=== PATIENT | female | born 1945 | race Caucasian/White ===

== ENCOUNTER 2018-06-09 11:10 | Emergency (ER) | payer MEDICARE ==
--- NOTE | 2018-06-09 12:23 | ERPHSYRPT ---
- History of Present Illness Time Seen by Provider: 06/09/18 12:13 Source: patient Exam Limitations: no limitations Patient Subjective Stated Complaint: pt reports seeing her [employer] today for a check up and her BP was in the 200/100 range. pt denies pain, pt reports she is compliant with her BP medications. Triage Nursing Assessment: pt is aox3, pupils perrl, resps easy and non labored , radial pulses strong and equal, skin pink warm dry. pt ambulated to tx area with no difficulty. pt appears in no distress. Physician History: The patient is a 73-year-old female with her complaining of high blood pressure today while seen by nurse practitioner. One month ago a nurse practitioner found a heart murmur. The patient had an echocardiogram. She has not heard results from the echocardiogram. The patient's losartan had been increased from 50 to 100 mg daily because of her elevated blood pressure. Today her blood pressure was 200 systolic at the nurse practitioners office. The patient denies headache, chest pain, nausea, vomiting, or flushing. She denies any pain at all. She states she feels fine. Timing/Duration: today, gradual onset, worse Severity: moderate Modifying Factors: Improves With: nothing Associated Symptoms: denies symptoms Allergies/Adverse Reactions: No Known Drug Allergies Allergy (Unverified 06/09/18 11:31) Home Medications: Aspirin EC 81 mg [Ecotrin 81 mg] 81 mg PO DAILY 06/09/18 [History] Ezetimibe 10 mg PO DAILY 06/09/18 [History] Inositol 500 mg PO DAILY 06/09/18 [History] Levothyroxine Sodium 112 Mcg [Synthroid 112 Mcg] 112 mcg PO DAILY 06/09/18 [History] Losartan Potassium 100 mg PO DAILY 06/09/18 [History] Meloxicam 15 mg PO DAILY 06/09/18 [History] hydroCHLOROthiazide [Hydrochlorothiazide] 12.5 mg PO DAILY 06/09/18 [History] Hx Tetanus, Diphtheria Vaccination/Date Given: Yes Hx Influenza Vaccination/Date Given: Yes Hx Pneumococcal Vaccination/Date Given: No Immunizations Up to Date: Yes - Review of Systems Constitutional: No Fever, No Chills Eyes: No Symptoms Ears, Nose, & Throat: No Symptoms Respiratory: No Cough, No Dyspnea Cardiac: No Chest Pain, No Edema, No Syncope Abdominal/Gastrointestinal: No Abdominal Pain, No Nausea, No Vomiting, No Diarrhea Genitourinary Symptoms: No Dysuria Musculoskeletal: No Back Pain, No Neck Pain Skin: No Rash Neurological: No Dizziness, No Focal Weakness, No Sensory Changes Psychological: No Symptoms Endocrine: No Symptoms Hematologic/Lymphatic: No Symptoms Immunological/Allergic: No Symptoms All Other Systems: Reviewed and Negative - Past Medical History Pertinent Past Medical History: Yes Cardiac History: High Cholesterol, Hypertension, Other Endocrine Medical History: Hypothyroidism Psycho-Social History: Depression Other Medical History: heart murmur - Past Surgical History Past Surgical History: Yes Musculoskeletal: Joint Replacement, Orthopedic Surgery Female Surgical History: Tubal Ligation Other Surgical History: r hip 2016. bilat foot fractures. trigger thumb - Social History Smoking Status: Former smoker Drug Use: none Patient Lives Alone: No - Female History Hx Now: No - Nursing Vital Signs Nursing Vital Signs: Initial Vital Signs Pulse Rate 100 H 06/09/18 11:13 Respiratory Rate 20 06/09/18 11:13 Blood Pressure 203/133 06/09/18 11:13 O2 Sat by Pulse Oximetry 96 06/09/18 11:13 Pain Scale Pain Intensity 0 - Physical Exam General Appearance: no apparent distress, alert Eye Exam: PERRL/EOMI, eyes nml inspection Ears, Nose, Throat Exam: normal ENT inspection, TMs normal, pharynx normal, moist mucous membranes Neck Exam: normal inspection, non-tender, supple, full range of motion Respiratory Exam: normal breath sounds, lungs clear, No respiratory distress Cardiovascular Exam: regular rate/rhythm, murmur Gastrointestinal/Abdomen Exam: soft, normal bowel sounds, No tenderness, No mass Pelvic Exam: not done Rectal Exam: not done Back Exam: normal inspection, normal range of motion, No CVA tenderness, No vertebral tenderness Extremity Exam: normal inspection, normal range of motion, pelvis stable Neurologic Exam: alert, oriented x 3, cooperative, normal mood/affect, nml cerebellar function, nml station & gait, sensation nml, No motor deficits Skin Exam: normal color, warm, dry, No rash Lymphatic Exam: No adenopathy SpO2 Interpretation: normal SpO2: 96 Oxygen Delivery: Room Air - Course EKG Interpreted by Me: RATE, Sinus Rhythm, NORMAL AXIS, NORMAL INTERVALS, NORMAL QRS, NORMAL ST-T - Radiology Exams Chest X-ray Interpretation: Reviewed by me, Teleradiologist Report (per Dr Roman.), Negative Ordered Tests: Active Orders 24 hr Category Date Time Status Clean Catch Urine Specimen STAT Care 06/09/18 12:23 Active EKG-ER Only STAT Care 06/09/18 12:23 Active CHEST 2 VIEWS (PA AND LAT) Stat Exams 06/09/18 12:23 Completed CBC W DIFF Stat Lab 06/09/18 12:59 Completed CMP Stat Lab 06/09/18 12:59 Completed Lactic Acid Stat Lab 06/09/18 12:45 Completed TROPONIN Q3H Lab 06/09/18 12:30 Completed TROPONIN Q3H Lab 06/09/18 15:30 Ordered TROPONIN Q3H Lab 06/09/18 18:30 Ordered TROPONIN Q3H Lab 06/09/18 21:30 Ordered TROPONIN Q3H Lab 06/10/18 00:30 Ordered TSH [TSH, 3RD Generation] Stat Lab 06/09/18 12:59 Completed UA W/RFX UR CULTURE Stat Lab 06/09/18 12:32 Completed Lab/Rad Data: Laboratory Result Diagrams 06/09/18 12:59 06/09/18 12:59 Laboratory Results 06/09/18 06/09/18 06/09/18 Range/Units 12:59 12:59 12:59 WBC 7.1 (4.0-10.5) K/mm3 RBC 4.50 (4.1-5.4) M/mm3 Hgb 14.6 (12.0-16.0) gm/dl Hct 44.5 (35-47) % MCV 98.9 (78-100) fl MCH 32.4 H (26-32) pg MCHC 32.8 (32-36) g/dl RDW 13.3 (11.5-14.0) % Plt Count 270 (150-450) K/mm3 MPV 9.6 H (6-9.5) fl Gran % 76.8 H (36.0-66.0) % Eos # (Auto) 0.04 (0-0.5) Absolute Lymphs (auto) 0.92 L (1.0-4.6) Absolute Monos (auto) 0.66 (0.0-1.3) Lymphocytes % 12.9 L (24.0-44.0) % Monocytes % 9.3 (0.0-12.0) % Eosinophils % 0.6 (0.00-5.0) % Basophils % 0.4 (0.0-0.4) % Absolute Granulocytes 5.48 (1.4-6.9) Basophils # 0.03 (0-0.4) Sodium 140 (137-145) mmol/L Potassium 4.5 (3.5-5.1) mmol/L Chloride 102 (98-107) mmol/L Carbon Dioxide 30 (22-30) mmol/L Anion Gap 12.8 (5-15) MEQ/L BUN 24 H (7-17) mg/dL Creatinine 0.69 (0.52-1.04) mg/dL Estimated GFR > 60.0 ML/MIN Glucose 82 (74-106) mg/dL Lactic Acid (0.4-2.0) Calcium 9.8 (8.4-10.2) mg/dL Total Bilirubin 0.40 (0.2-1.3) mg/dL AST 23 (14-36) U/L ALT 22 (0-35) U/L Alkaline Phosphatase 120 (38-126) U/L Troponin I (0.000-0.034) ng/mL Serum Total Protein 6.8 (6.3-8.2) g/dL Albumin 4.1 (3.5-5.0) g/dL TSH 3rd Generation 1.350 (0.47-4.68) mIU/L Urine Color (YELLOW) Urine Appearance (CLEAR) Urine pH (5-6) Ur Specific [place] (1.005-1.025) Urine Protein (Negative) Urine Ketones (NEGATIVE) Urine Blood (0-5) Timothy/ul Urine Nitrite (NEGATIVE) Urine Bilirubin (NEGATIVE) Urine Urobilinogen (0-1) mg/dL Ur Leukocyte Esterase (NEGATIVE) Urine WBC (Auto) (0-5) /HPF Urine RBC (Auto) (0-2) /HPF U Epithel Cells (Auto) (FEW) /HPF Urine Bacteria (Auto) (NEGATIVE) /HPF Urine Mucus (Auto) (NEGATIVE) /HPF Urine Culture Reflexed (NO) Urine Glucose (NEGATIVE) mg/dL 06/09/18 06/09/18 06/09/18 Range/Units 12:45 12:32 12:30 WBC (4.0-10.5) K/mm3 RBC (4.1-5.4) M/mm3 Hgb (12.0-16.0) gm/dl Hct (35-47) % MCV (78-100) fl MCH (26-32) pg MCHC (32-36) g/dl RDW (11.5-14.0) % Plt Count (150-450) K/mm3 MPV (6-9.5) fl Gran % (36.0-66.0) % Eos # (Auto) (0-0.5) Absolute Lymphs (auto) (1.0-4.6) Absolute Monos (auto) (0.0-1.3) Lymphocytes % (24.0-44.0) % Monocytes % (0.0-12.0) % Eosinophils % (0.00-5.0) % Basophils % (0.0-0.4) % Absolute Granulocytes (1.4-6.9) Basophils # (0-0.4) Sodium (137-145) mmol/L Potassium (3.5-5.1) mmol/L Chloride (98-107) mmol/L Carbon Dioxide (22-30) mmol/L Anion Gap (5-15) MEQ/L BUN (7-17) mg/dL Creatinine (0.52-1.04) mg/dL Estimated GFR ML/MIN Glucose (74-106) mg/dL Lactic Acid 1.2 (0.4-2.0) Calcium (8.4-10.2) mg/dL Total Bilirubin (0.2-1.3) mg/dL AST (14-36) U/L ALT (0-35) U/L Alkaline Phosphatase (38-126) U/L Troponin I < 0.012 (0.000-0.034) ng/mL Serum Total Protein (6.3-8.2) g/dL Albumin (3.5-5.0) g/dL TSH 3rd Generation (0.47-4.68) mIU/L Urine Color STRAW (YELLOW) Urine Appearance CLEAR (CLEAR) Urine pH 7.0 (5-6) Ur Specific [place] 1.006 (1.005-1.025) Urine Protein NEGATIVE (Negative) Urine Ketones NEGATIVE (NEGATIVE) Urine Blood NEGATIVE (0-5) Timothy/ul Urine Nitrite NEGATIVE (NEGATIVE) Urine Bilirubin NEGATIVE (NEGATIVE) Urine Urobilinogen NEGATIVE (0-1) mg/dL Ur Leukocyte Esterase TRACE (NEGATIVE) Urine WBC (Auto) 0-2 (0-5) /HPF Urine RBC (Auto) 0-2 (0-2) /HPF U Epithel Cells (Auto) RARE (FEW) /HPF Urine Bacteria (Auto) RARE (NEGATIVE) /HPF Urine Mucus (Auto) SLIGHT (NEGATIVE) /HPF Urine Culture Reflexed NO (NO) Urine Glucose NEGATIVE (NEGATIVE) mg/dL - Progress Progress: unchanged Counseled pt/family regarding: lab results, diagnosis, need for follow-up, rad results - Departure Time of Disposition: 14:13 Departure Disposition: Home Clinical Impression: HTN (hypertension) Condition: Stable Critical Care Time: No Referrals: DANI SONI NP [Primary Care Provider] - Additional Instructions: When you first arrived in the ER, your blood pressure was high. After being seated for several minutes, blood pressure has been normal. all laboratory testing and x-ray of your chest were normal. Urinalysis was normal. Keep taking your medicines as previously prescribed. When home, use automatic blood pressure machine and take your blood pressure 2 or 3 times a day. Record your blood pressure readings and bring them to your next appointment on Tuesday. If your blood pressure becomes very high again, feel free to return to the ER.
--- NOTE | 2018-06-09 12:52 | XRAY ---
Indication: High blood pressure. Short of breath. Comparison: None PA/lateral chest hyperinflated and clear. Heart and mediastinal structures within normal limits. Bony thorax intact with mild degenerative changes. Impression: Nonacute hyperinflated chest.
[2018-06-09 13:00] LABS: BASOPHIL % 0.4 % (0.0-0.4); Basophil (Absolute #) 0.03 (0-0.4); Eosinophil % 0.6 % (0.00-5.0); Eosinophil (Absolute #) 0.04 (0-0.5); Granulocyte Absolute (ANC) 5.48 (1.4-6.9); Granulocytes % 76.8 % (36.0-66.0); Hematocrit 44.5 % (35-47); Hemoglobin 14.6 gm/dl (12.0-16.0); Lymphocyte (Absolute #) 0.92 (1.0-4.6); Lymphocytes % 12.9 % (24.0-44.0); Mean Cell Volume 98.9 fl (78-100); Mean Corpuscular Hemoglobin 32.4 pg (26-32); Mean Corpuscular Hgb Concent. 32.8 g/dl (32-36); Mean Platelet Volume 9.6 fl (6-9.5); Monocyte (Absolute #) 0.66 (0.0-1.3); Monocytes % 9.3 % (0.0-12.0); Platelet Count 270 K/mm3 (150-450); Red Cell Distribution Width 13.3 % (11.5-14.0); White Blood Count 7.1 K/mm3 (4.0-10.5)
[2018-06-09 13:03] LABS: Appearance CLEAR (CLEAR); Bilirubin NEGATIVE (NEGATIVE); Blood NEGATIVE Ery/ul (0-5); Glucose NEGATIVE (NEGATIVE); Ketones NEGATIVE (NEGATIVE); Leukocyte Esterase TRACE (NEGATIVE); Nitrite NEGATIVE (NEGATIVE); Protein,Urine Dip NEGATIVE (Negative); Specific Gravity 1.006 (1.005-1.025); Urobilinogen NEGATIVE mg/dL (0-1)
[2018-06-09 13:24] LABS: ALBUMIN 4.1 g/dL (3.5-5.0); ALKALINE PHOSPHATASE 120 U/L (38-126); ANION GAP 12.8 MEQ/L (5-15); BLOOD UREA NITROGEN 24 mg/dL (7-17); CHLORIDE 102 mmol/L (98-107); Calcium 9.8 mg/dL (8.4-10.2); Carbon Dioxide 30 mmol/L (22-30); Creatinine 1 0.69 mg/dL (0.52-1.04); Glucose 82 mg/dL (74-106); Potassium 4.5 mmol/L (3.5-5.1); SGOT/AST 23 U/L (14-36); SGPT/ALT 22 U/L (0-35); SODIUM 140 mmol/L (137-145); Total Protein 6.8 g/dL (6.3-8.2)
[2018-06-09 14:17] VITALS: O2SAT 96
[2018-06-09 14:25] VITALS: BP 151/101; PULSE 76
== END 2018-06-09 14:24 | disposition home or self-care (01) ==
LOC: ED 11:10
DX: I10 Essential (primary) hypertension (principal); Z79.899 Other long term (current) drug therapy; E03.9 Hypothyroidism, unspecified
CPT/HCPCS: 36415; 71046; 80053; 81001; 83605; 84443; 84484; 85025; 93005; 99284

== ENCOUNTER 2018-12-02 15:50 | Emergency (ER) | payer MEDICARE ==
[2018-12-02] MEDS ORDERED: Sodium Chloride 0.9% 1000 ML 1,000 ML IV STA (16:06)
[2018-12-02] MEDS ORDERED: Sodium Chloride 0.9% 1000 ML 1,000 ML ONE (16:19)
[2018-12-02 16:27] LABS: BASOPHIL % 0.2 % (0.0-0.4); Basophil (Absolute #) 0.02 (0-0.4); Eosinophil % 0.7 % (0.00-5.0); Eosinophil (Absolute #) 0.07 (0-0.5); Granulocyte Absolute (ANC) 8.54 (1.4-6.9); Granulocytes % 84.1 % (36.0-66.0); Hematocrit 39.4 % (35-47); Lymphocyte (Absolute #) 0.57 (1.0-4.6); Lymphocytes % 5.6 % (24.0-44.0); Mean Cell Volume 98.5 fl (78-100); Mean Corpuscular Hemoglobin 32.5 pg (26-32); Mean Platelet Volume 9.9 fl (6-9.5); Monocytes % 9.4 % (0.0-12.0); Platelet Count 248 K/mm3 (150-450); Red Cell Distribution Width 13.1 % (11.5-14.0); White Blood Count 10.2 K/mm3 (4.0-10.5)
[2018-12-02 16:34] LABS: Appearance TURBID (CLEAR); Bacteria FEW /HPF (NEGATIVE); Bilirubin NEGATIVE (NEGATIVE); Blood LARGE Ery/ul (0-5); Glucose NEGATIVE (NEGATIVE); Ketones TRACE (NEGATIVE); Leukocyte Esterase MODERATE (NEGATIVE); Nitrite NEGATIVE (NEGATIVE); Protein,Urine Dip 100 (Negative); Specific Gravity 1.015 (1.005-1.025); Urobilinogen NEGATIVE mg/dL (0-1); WBC >100 /HPF (0-5)
[2018-12-02 16:35] LABS: RBC >101 /HPF (0-2)
[2018-12-02 16:36] LABS: ALBUMIN 4.1 g/dL (3.5-5.0); ALKALINE PHOSPHATASE 101 U/L (38-126); BLOOD UREA NITROGEN 20 mg/dL (7-17); CHLORIDE 98 mmol/L (98-107); Calcium 9.2 mg/dL (8.4-10.2); Carbon Dioxide 28 mmol/L (22-30); Glucose 112 mg/dL (74-106); Potassium 3.6 mmol/L (3.5-5.1); SGOT/AST 30 U/L (14-36); SGPT/ALT 21 U/L (0-35); SODIUM 137 mmol/L (137-145); Total Protein 7.2 g/dL (6.3-8.2)
--- NOTE | 2018-12-02 16:51 | ERPHSYRPT ---
- History of Present Illness Time Seen by Provider: 12/02/18 16:49 Historian: patient Exam Limitations: no limitations Patient Subjective Stated Complaint: states has had right flank and right groin pain for four days. today had blood in urine and was having chills. hx of kidney stone. Triage Nursing Assessment: ambulated to room per self. skin w/d, color normal, resp easy. patient holding right flank area. abd soft, tender rlq. urine spec obtained and urine is dark red. Physician History: 73 years old female patient states has had right flank and right groin pain for four days. today had blood in urine and was having chills Timing/Duration: today Abdominal Pain Onset Location: RLQ, suprapubic, flank Pain Radiation: RLQ Severity of Pain-Max: moderate Severity of Pain-Current: mild Modifying Factors: Improves With: nothing Previous symptoms: same symptoms as today Allergies/Adverse Reactions: morphine Adverse Reaction (Verified 12/02/18 16:18) Home Medications: Aspirin EC 81 mg [Ecotrin 81 mg] 81 mg PO DAILY 06/09/18 [History] Ezetimibe 10 mg PO DAILY 06/09/18 [History] Levothyroxine Sodium 112 Mcg [Synthroid 112 Mcg] 112 mcg PO DAILY 06/09/18 [History] Meloxicam 15 mg PO DAILY 06/09/18 [History] Amlodipine Besylate 5 mg PO DAILY 12/02/18 [History] Losartan/Hydrochlorothiazide [Losartan-Hctz 100-25 mg Tab] 100 mg PO DAILY 12/02 [History] [place]-3S/Dha/Epa/Fish Oil [Fish Oil 1,200 mg Softgel] 1 each PO DAILY 12/02/18 [ History] Rosuvastatin Calcium 10 mg PO DAILY 12/02/18 [History] Vit A/Vit C/Vit E/Zinc/Copper [Preservision Areds Tablet] 2 each PO DAILY [History] Hx Tetanus, Diphtheria Vaccination/Date Given: Yes Hx Influenza Vaccination/Date Given: Yes Hx Pneumococcal Vaccination/Date Given: Yes - Review of Systems Constitutional: No Fever, No Chills Eyes: No Symptoms Ears, Nose, & Throat: No Symptoms Respiratory: No Cough, No Dyspnea Cardiac: No Chest Pain, No Edema, No Syncope Abdominal/Gastrointestinal: No Abdominal Pain, No Nausea, No Vomiting, No Diarrhea Genitourinary Symptoms: Dysuria, Frequency, Hematuria, Hesitancy Musculoskeletal: No Back Pain, No Neck Pain Skin: No Rash Neurological: No Dizziness, No Focal Weakness, No Sensory Changes Psychological: No Symptoms Endocrine: No Symptoms All Other Systems: Reviewed and Negative - Past Medical History Pertinent Past Medical History: Yes Cardiac History: High Cholesterol, Hypertension, Other Endocrine Medical History: Hypothyroidism Psycho-Social History: Depression Other Medical History: heart murmur - Past Surgical History Past Surgical History: Yes Musculoskeletal: Joint Replacement, Orthopedic Surgery Female Surgical History: Tubal Ligation Other Surgical History: r hip 2016. bilat foot fractures. trigger thumb - Social History Smoking Status: Former smoker Exposure to second hand smoke: Yes Drug Use: none Patient Lives Alone: No - Nursing Vital Signs Nursing Vital Signs: Initial Vital Signs Temperature 99.7 F 12/02/18 15:55 Pulse Rate 123 H 12/02/18 15:55 Respiratory Rate 16 12/02/18 15:55 Blood Pressure 178/90 12/02/18 15:55 O2 Sat by Pulse Oximetry 94 L 12/02/18 15:55 Pain Scale Pain Intensity 4 - Physical Exam General Appearance: no apparent distress, alert Eye Exam: PERRL/EOMI, eyes nml inspection Ears, Nose, Throat Exam: normal ENT inspection, pharynx normal, moist mucous membranes Neck Exam: normal inspection, non-tender, supple, full range of motion Respiratory Exam: normal breath sounds, lungs clear, No respiratory distress Cardiovascular Exam: regular rate/rhythm, normal heart sounds Gastrointestinal/Abdomen Exam: soft, No tenderness, No mass Back Exam: normal inspection, normal range of motion, No CVA tenderness, No vertebral tenderness Extremity Exam: normal inspection, normal range of motion, pelvis stable Neurologic Exam: alert, oriented x 3, cooperative, normal mood/affect, nml cerebellar function, sensation nml, No motor deficits Skin Exam: normal color, warm, dry SpO2: 94 - Course Nursing assessment & vital signs reviewed: Yes - CT Exams Abdomen/Pelvis CT Interpretation: Tele-radiologist Report (multiple renal stones) Ordered Tests: Active Orders 24 hr Category Date Time Status ABDOMEN AND PELVIS W/0 CONTRAS [CT] Stat Exams 12/02/18 16:07 Taken CBC W DIFF Stat Lab 12/02/18 16:15 Completed CMP Stat Lab 12/02/18 16:15 Completed CULTURE,URINE Stat Lab 12/02/18 16:15 Received Lactic Acid Stat Lab 12/02/18 16:26 Completed UA W/RFX UR CULTURE Stat Lab 12/02/18 16:15 Completed Medication Summary Discontinued Medications Generic Name Dose Route Start Last Admin Trade Name Esme PRN Reason Stop Dose Admin Sodium Chloride 1,000 mls @ 999 mls/hr 12/02/18 16:06 12/02/18 16:21 Sodium Chloride 0.9% 1000 Ml IV 12/02/18 17:06 999 mls/hr .Q1H1M STA Administration Sodium Chloride Confirm 12/02/18 16:19 Sodium Chloride 0.9% 1000 Ml Administered 12/02/18 16:20 Dose 1,000 mls @ ud .ROUTE .K-MED ONE Lab/Rad Data: Laboratory Result Diagrams 12/02/18 16:15 12/02/18 16:15 Laboratory Results 12/02/18 12/02/18 12/02/18 Range/Units 16:26 16:15 16:15 WBC (4.0-10.5) K/mm3 RBC (4.1-5.4) M/mm3 Hgb (12.0-16.0) gm/dl Hct (35-47) % MCV (78-100) fl MCH (26-32) pg MCHC (32-36) g/dl RDW (11.5-14.0) % Plt Count (150-450) K/mm3 MPV (6-9.5) fl Gran % (36.0-66.0) % Eos # (Auto) (0-0.5) Absolute Lymphs (auto) (1.0-4.6) Absolute Monos (auto) (0.0-1.3) Lymphocytes % (24.0-44.0) % Monocytes % (0.0-12.0) % Eosinophils % (0.00-5.0) % Basophils % (0.0-0.4) % Absolute Granulocytes (1.4-6.9) Basophils # (0-0.4) Sodium 137 (137-145) mmol/L Potassium 3.6 (3.5-5.1) mmol/L Chloride 98 (98-107) mmol/L Carbon Dioxide 28 (22-30) mmol/L Anion Gap 14.0 (5-15) MEQ/L BUN 20 H (7-17) mg/dL Creatinine 0.90 (0.52-1.04) mg/dL Estimated GFR > 60.0 ML/MIN Glucose 112 H (74-106) mg/dL Lactic Acid 1.0 (0.4-2.0) Calcium 9.2 (8.4-10.2) mg/dL Total Bilirubin 0.60 (0.2-1.3) mg/dL AST 30 (14-36) U/L ALT 21 (0-35) U/L Alkaline Phosphatase 101 (38-126) U/L Serum Total Protein 7.2 (6.3-8.2) g/dL Albumin 4.1 (3.5-5.0) g/dL Urine Color RED (YELLOW) Urine Appearance TURBID (CLEAR) Urine pH 7.0 (5-6) Ur Specific [place] 1.015 (1.005-1.025) Urine Protein 100 (Negative) Urine Ketones TRACE (NEGATIVE) Urine Blood LARGE (0-5) Timothy/ul Urine Nitrite NEGATIVE (NEGATIVE) Urine Bilirubin NEGATIVE (NEGATIVE) Urine Urobilinogen NEGATIVE (0-1) mg/dL Ur Leukocyte Esterase MODERATE (NEGATIVE) Urine WBC (Auto) >100 (0-5) /HPF Urine RBC (Auto) >101 (0-2) /HPF U Epithel Cells (Auto) NONE (FEW) /HPF Urine Bacteria (Auto) FEW (NEGATIVE) /HPF Urine Culture Reflexed YES (NO) Urine Glucose NEGATIVE (NEGATIVE) mg/dL Slides for Path Review 12/02/18 Range/Units 16:15 WBC 10.2 (4.0-10.5) K/mm3 RBC 4.00 L (4.1-5.4) M/mm3 Hgb 13.0 (12.0-16.0) gm/dl Hct 39.4 (35-47) % MCV 98.5 (78-100) fl MCH 32.5 H (26-32) pg MCHC 33.0 (32-36) g/dl RDW 13.1 (11.5-14.0) % Plt Count 248 (150-450) K/mm3 MPV 9.9 H (6-9.5) fl Gran % 84.1 H (36.0-66.0) % Eos # (Auto) 0.07 (0-0.5) Absolute Lymphs (auto) 0.57 L (1.0-4.6) Absolute Monos (auto) 0.95 (0.0-1.3) Lymphocytes % 5.6 L (24.0-44.0) % Monocytes % 9.4 (0.0-12.0) % Eosinophils % 0.7 (0.00-5.0) % Basophils % 0.2 (0.0-0.4) % Absolute Granulocytes 8.54 H (1.4-6.9) Basophils # 0.02 (0-0.4) Sodium (137-145) mmol/L Potassium (3.5-5.1) mmol/L Chloride (98-107) mmol/L Carbon Dioxide (22-30) mmol/L Anion Gap (5-15) MEQ/L BUN (7-17) mg/dL Creatinine (0.52-1.04) mg/dL Estimated GFR ML/MIN Glucose (74-106) mg/dL Lactic Acid (0.4-2.0) Calcium (8.4-10.2) mg/dL Total Bilirubin (0.2-1.3) mg/dL AST (14-36) U/L ALT (0-35) U/L Alkaline Phosphatase (38-126) U/L Serum Total Protein (6.3-8.2) g/dL Albumin (3.5-5.0) g/dL Urine Color (YELLOW) Urine Appearance (CLEAR) Urine pH (5-6) Ur Specific [place] (1.005-1.025) Urine Protein (Negative) Urine Ketones (NEGATIVE) Urine Blood (0-5) Timothy/ul Urine Nitrite (NEGATIVE) Urine Bilirubin (NEGATIVE) Urine Urobilinogen (0-1) mg/dL Ur Leukocyte Esterase (NEGATIVE) Urine WBC (Auto) (0-5) /HPF Urine RBC (Auto) (0-2) /HPF U Epithel Cells (Auto) (FEW) /HPF Urine Bacteria (Auto) (NEGATIVE) /HPF Urine Culture Reflexed (NO) Urine Glucose (NEGATIVE) mg/dL Slides for Path Review YES - Progress Progress: improved Counseled pt/family regarding: lab results, diagnosis, need for follow-up, rad results - Departure Departure Disposition: Home Clinical Impression: Renal stones HTN (hypertension) Qualifiers: Hypertension type: essential hypertension Qualified Code(s): I10 - Essential ( primary) hypertension Condition: Stable Critical Care Time: No Referrals: DANI SONI NP [Primary Care Provider] - SHYANN STARR DO [NON-STAFF PHY W/O PRIVILEGES] - Instructions: Kidney Stones (DC) Additional Instructions: Discharge/Care Plan GEMA OSEI was seen on 12/02/18 in the Emergency Room. The patient was counseled regarding Diagnosis,Lab results, Imaging studies, need for follow up and when to return to the Emergency Room. Prescriptions given: Discharge Note I have spoken with the patient and/or caregivers. I have explained the patient' s condition, diagnosis and treatment plan based on the information available to me at this time. I have answered the patient's and/or caregiver's questions and addressed any concerns. The patient and/or caregivers have as good understanding of the patient's diagnosis, condition and treatment plan as can be expected at this point. The vital signs have been stable. The patient's condition is stable and appropriate for discharge from the emergency department. The patient will pursue further outpatient evaluation with the primary care physician or other designated or consulting physician as outlined in the discharge instructions. The patient and/or caregivers are agreeable to this plan of care and follow-up instructions have been explained in detail. The patient and/or caregivers have received these instruction. The patient/and or caregivers are aware that any significant change in condition or worsening of symptoms should prompt an immediate return to this or the closest emergency department or call 911. Prescriptions: Ciprofloxacin [Cipro 500 MG] 500 mg PO BIDAC #20 tablet
[2018-12-02 17:32] LABS: Slide Review 1 YES
[2018-12-02] MEDS ORDERED: ROCEPHIN 1 Gm-D5w 50 ml Bag** 1 G/50 ML IVPB IV STA (17:42)
[2018-12-02] MEDS ORDERED: ROCEPHIN 1 Gm-D5w 50 ml Bag** 1 G/50 ML IVPB IV ONE ×2 (17:46→18:50)
[2018-12-02 17:54] VITALS: BP 154/80; PULSE 94; O2SAT 97
--- NOTE | 2018-12-02 22:37 | XRAY ---
Indication: Right abdomen/flank pain. Multiple contiguous axial images obtained through the abdomen and pelvis without contrast as ordered. Comparison: None Lung bases demonstrates 3-4 mm peripheral right middle lobe and 2-3 mm peripheral right lower lobe noncalcified indeterminate nodules. No infiltrate or effusion. Heart is not enlarged with tiny pericardial effusion. Moderate sized hiatal hernia with partial intrathoracic stomach. Noncontrasted stomach and bowel loops appear nonobstructed. Normal appendix. Scattered sigmoid diverticulosis. Images through the pelvis limited by beam artifact from right hip bipolar prosthesis. There is a 7.5 x 7 cm heterogeneous mid pelvic mass with a few calcifications, possible exophytic fundal fibroid. Teratoma/dermoid not completely excluded. No free fluid/air. Both kidneys are hydronephrotic with calculi, right greater than left. Right ureter is also slightly prominent to the level of the pelvic mass, possible partial distal obstruction. Remaining liver, gallbladder, pancreas, spleen, adrenal glands, kidneys, and bladder appear unremarkable for noncontrast exam. Mild aortoiliac calcifications without AAA. Osseous structures intact with mild/moderate degenerative changes throughout the thoracolumbar spine. Impression: 1. Heterogeneous pelvic mass as detailed. Rule out uterine fibroid versus teratoma/dermoid. Beam artifact from right hip prosthesis limits images through the pelvis. Pelvic sonogram may yield further information. 2. Bilateral renal calculi and bilateral hydronephrosis right greater than left. Right ureter is slightly prominent to level of the fundal mass suggesting partial obstructive uropathy. 3. Moderate-sized hiatal hernia and sigmoid diverticulosis. 4. Indeterminant right middle and right lower lobe noncalcified micronodules. Comparison studies would be of benefit if performed elsewhere. If not, recommend CT chest to establish baseline with follow-up per Fleischner guidelines. Comment: Preliminary interpretation was made by [facility]. No critical discrepancy. CTDI 22.02
== END 2018-12-02 18:32 | disposition home or self-care (01) ==
LOC: ED 15:50
DX: I10 Essential (primary) hypertension (principal); E78.00 Pure hypercholesterolemia, unspecified; F32.9 Major depressive disorder, single episode, unspecified; R01.1 Cardiac murmur, unspecified
CPT/HCPCS: 36000; 36415; 74176; 80053; 81001; 83605; 85025; 87077; 87086; 87186; 96360; 96365; 96374; 96375; 99284; J0696

== ENCOUNTER 2022-08-12 07:28 | Day surgery (SDC) | payer MEDICARE ==
--- NOTE | 2022-08-11 11:50 | HP ---
DATE OF SURGERY: 08/12/2022 HISTORY OF PRESENT ILLNESS: The patient is a 77-year-old female who presents with a clinical hernia with right lower quadrant bulge and painful. Walking down stairs bothers her. She had a total hysterectomy and tubal ligation in the past. She reports chronic kidney infections and kidney stone. She is apparently seeing urology for the kidney issue. She had a CT scan that did not really show anything on the scan. PAST MEDICAL HISTORY: Hypertension, gastroesophageal reflux disease, thyroid, anemia, arthritis, renal implant. PAST SURGICAL HISTORY: Hysterectomy. Tubal ligation. Foot surgery. Hip surgery. ALLERGIES: MORPHINE. MEDICATIONS: Tamsulosin, vitamin C, Diovan, carvedilol, aspirin, amlodipine, omeprazole, Tricor, valsartan, levothyroxine. FAMILY HISTORY: None reported. SOCIAL HISTORY: Former smoker, no alcohol. REVIEW OF SYSTEMS: CONSTITUTIONAL: Denies fever or chills. CHEST: Denies shortness of breath. CVS: Denies chest pain. ABDOMEN: Reports right lower quadrant pain. PHYSICAL EXAMINATION: GENERAL: No acute distress. CHEST: Nonlabored. No shortness of breath. CVS: Regular rate and rhythm. ABDOMEN: Soft, right lower quadrant ventral hernia. IMPRESSION: Right lower quadrant ventral hernia. PLAN: Ventral hernia repair with possible mesh with Dr. Tacos Suazo. As dictated by Mone Rg NP.
[~2022-08-12 07:28] MED LIST: KEFZOL 1 GM ONE; Lactated Ringers 1,000 ML IV ONE; Sensorcaine 0.25% 10 ML ONE
[2022-08-12] MEDS ORDERED: Lactated Ringers 1,000 ML IV SCH (07:30)
[2022-08-12] MEDS ORDERED: CEFAZOLIN 2 GM-D5W BAG** 2 GM/50 ML ML IV SCH (07:30)
[2022-08-12] MEDS ORDERED: CEFAZOLIN 2 GM-D5W BAG** 2 GM/50 ML ML IV ONE (08:00)
[2022-08-12] MEDS ORDERED: Lactated Ringers 1,000 ML IV ONE (08:00)
[2022-08-12 08:30] LABS: Hematocrit 30.3 % (35-47); Hemoglobin 9.3 g/dL (12.0-16.0); Mean Cell Volume 93.5 fL (78-100); Mean Corpuscular Hemoglobin 28.7 pg (26-32); Mean Corpuscular Hgb Concent. 30.7 g/dL (32-36); Mean Platelet Volume 9.5 fL (7.5-11.0); Platelet Count 359 x10^3/uL (150-450); Red Blood Count 3.24 x10^6/uL (4.1-5.4); Red Cell Distribution Width 19.5 % (11.5-14.0); White Blood Count 5.3 x10^3/uL (4.0-10.5)
[2022-08-12 08:57] LABS: Calcium 8.9 mg/dL (8.4-10.2); Creatinine 1 1.11 mg/dL (0.52-1.04); EST GLOMERULAR FILTRATION RATE 50.8 ML/MIN; Potassium 3.9 mmol/L (3.5-5.1); Total Protein 6.3 g/dL (6.3-8.2)
[2022-08-12 08:58] LABS: ALBUMIN 3.5 g/dL (3.5-5.0); BILIRUBIN,TOTAL 0.4 mg/dL (0.2-1.3)
[2022-08-12] MEDS ORDERED: TORAdol 30 mg Injection ONE (11:38)
[2022-08-12] MEDS ORDERED: Decadron 4 MG INJ ONE (11:38)
[2022-08-12] MEDS ORDERED: SUBLIMAZE 100 MCG/2 ML ONE ×2 (11:38→13:06)
[2022-08-12] MEDS ORDERED: Zofran 4 MG/2 ML VIAL ONE (11:38)
[2022-08-12] MEDS ORDERED: Xylocaine-Mpf 2% 5 Ml Vial ONE (11:38)
[2022-08-12] MEDS ORDERED: DIPRIVAN 200 MG/20 ML IV ONE (11:38)
[2022-08-12] MEDS ORDERED: BRIDION 200MG/2ML IV ONE (11:38)
[2022-08-12] MEDS ORDERED: Zemuron 100 MG/10 ML ONE (11:38)
[2022-08-12] MEDS ORDERED: PHENYLEPHRINE HCL ONE (11:52)
[2022-08-12] MEDS ORDERED: Ephedrine Sulfate 50 MG/ML ONE (11:55)
[2022-08-12] MEDS ORDERED: Marcaine 0.5%/Epinephrine 10 ML ONE (12:12)
[2022-08-12 13:48] VITALS: BP 130/65; PULSE 75; O2SAT 96
--- NOTE | 2022-08-12 13:57 | OP ---
SURGERY DATE/TIME: 08/12/2022 1205 PREOPERATIVE DIAGNOSIS: Ventral hernia. POSTOPERATIVE DIAGNOSIS: Ventral hernia. PROCEDURE: Ventral herniorrhaphy open no mesh. SURGEON: Tacos Suazo M.D. ANESTHESIA: General. COMPLICATIONS: None. CONDITION: Stable. INDICATION: The patient has a visible, palpable area right lateral right where the anterior abdominal wall joins the flank but it is in the anterior abdominal wall. It is about T10-T11 area. It shows up when she is standing up. DESCRIPTION OF PROCEDURE: She was taken to surgery. It had been marked. Routine prep and drape. Skin, subcu, external fascia, anterior muscular layer of fat that was taken. She had a weakness of the abdominal wall fascia here. It was able to be imbricated together with running sutures #0 Prolene imbricating about 4 cm of tissue. The field was dry. Subcu 3-0 Vicryl. Skin closed with meghna. Sterile dressing applied. The patient tolerated the procedure satisfactorily.
== END 2022-08-12 14:00 | disposition home or self-care (01) ==
LOC: SDC 07:28
PROVIDERS: ATTEND Surgery
DX: K43.9 Ventral hernia without obstruction or gangrene (principal); I10 Essential (primary) hypertension
CPT/HCPCS: 36415; 64486; 76937; 80053; 85027; 93005; J0690; J1100; J1885; J2370; J2405; J2704; J3010

== ENCOUNTER 2023-04-12 23:06 | Emergency (ER) | payer MEDICARE ==
--- NOTE | 2023-04-12 23:23 | ERPHSYRPT ---
- History of Present Illness Time Seen by Provider: 04/12/23 23:22 Source: patient Exam Limitations: no limitations Physician History: Patient is 78-year-old female presents to our ED with a 1 day history of right groin pain. Pain is worse when she bears down or lays flat. There is a reducible right inguinal hernia which is obvious during Valsalva or bearing down. Patient is ambulatory with a normal gait. Patient has a right total hip arthroplasty. Patient able to ambulate and stand on her involved hip without any discomfort. No other symptomology. No trauma no fever no nausea vomiting or diaphoresis. However patient does admit that she has been urinating frequently low volumes. Patient has a history of recurrent urinary tract infections. Symptoms are mild to moderate in intensity. Patient voices no other complaints or concerns at this time. Portions of this note were created with voice recognition technology. There may be grammatical, spelling, punctuation or sound alike errors Timing/Duration: yesterday Severity: moderate Modifying Factors: Improves With: nothing Associated Symptoms: denies symptoms Allergies/Adverse Reactions: [id number] Reductase Inhibitor Adverse Reaction (Verified 04/12/23 23:36) Home Medications: Levothyroxine Sodium 112 Mcg [Synthroid 112 Mcg] 112 mcg PO DAILY 06/09/18 [History] Vit A/Vit C/Vit E/Zinc/Copper [Preservision Areds Tablet] 1 each PO BID 12/02/18 [History] Ascorbic Acid 500 mg [Vitamin C 500 MG] 1,000 mg PO DAILY 07/12/22 [History] Cholecalciferol (Vitamin D3) [Vitamin D] 500 mg PO DAILY 07/12/22 [History] Cranberry Fruit Concentrate [Cranberry] 1 tab PO DAILY 07/12/22 [History] Fenofibrate Nanocrystallized [Fenofibrate] 145 mg PO DAILY 07/12/22 [History] Nitrofurantoin Macro 100 mg [Macrobid 100MG Capsule] 100 mg PO DAILY 07/12/22 [History] Tamsulosin HCl 0.4 mg [Flomax 0.4 MG] 0.4 mg PO DAILY 07/12/22 [History] Valsartan/Hydrochlorothiazide [Diovan Hct 160-25 mg Tablet] 320 mg PO DAILY 07/12/22 [History] carvediloL [Carvedilol] 12.5 tab PO BID 07/12/22 [History] Aspirin EC 81 mg [Ecotrin 81 mg] 81 mg PO HS 04/12/23 [History] Ferrous Gluconate 324 mg PO DAILY 04/12/23 [History] Furosemide 20 mg [Lasix 20 mg] 1 tab PO DAILY 04/12/23 [History] Trazodone HCl 50 mg [Desyrel 50 mg] 1 tab PO HS 04/12/23 [History] Vibegron [Gemtesa] 1 tab PO DAILY 04/12/23 [History] Hx Tetanus, Diphtheria Vaccination/Date Given: Yes Hx Influenza Vaccination/Date Given: Yes Hx Pneumococcal Vaccination/Date Given: Yes - Review of Systems Constitutional: No Symptoms, No Fever, No Chills Eyes: No Symptoms Ears, Nose, & Throat: No Symptoms Respiratory: No Symptoms, No Cough, No Dyspnea Cardiac: No Symptoms, No Chest Pain, No Edema, No Syncope Abdominal/Gastrointestinal: No Symptoms, No Abdominal Pain, No Nausea, No Vomiting, No Diarrhea Genitourinary Symptoms: No Symptoms, No Dysuria Musculoskeletal: No Symptoms, No Back Pain, No Neck Pain Skin: No Symptoms, No Rash Neurological: No Symptoms, No Dizziness, No Focal Weakness, No Sensory Changes Psychological: No Symptoms Endocrine: No Symptoms Hematologic/Lymphatic: No Symptoms Immunological/Allergic: No Symptoms All Other Systems: Reviewed and Negative - Past Medical History Pertinent Past Medical History: Yes Neurological History: No Pertinent History ENT History: No Pertinent History Cardiac History: High Cholesterol, Hypertension, Other Respiratory History: No Pertinent History Endocrine Medical History: Hypothyroidism Musculoskeletal History: No Pertinent History GI Medical History: No Pertinent History History: Other Psycho-Social History: No Pertinent History Female Reproductive Disorders: No Pertinent History Other Medical History: heart murmur,hx of kidney stones - Past Surgical History Past Surgical History: Yes Neuro Surgical History: No Pertinent History Cardiac: No Pertinent History Respiratory: No Pertinent History Gastrointestinal: No Pertinent History Genitourinary: Other Musculoskeletal: Joint Replacement, Orthopedic Surgery Female Surgical History: Tubal Ligation Other Surgical History: r hip 2016. bilat foot fractures. trigger thumb. lithotripsy - Social History Smoking Status: Former smoker Exposure to second hand smoke: No Drug Use: none Patient Lives Alone: No - Nursing Vital Signs Nursing Vital Signs: Initial Vital Signs Temperature 98.4 F 04/12/23 23:20 Pulse Rate 100 H 04/12/23 23:20 Respiratory Rate 18 04/12/23 23:20 Blood Pressure 180/99 04/12/23 23:20 O2 Sat by Pulse Oximetry 97 04/12/23 23:20 Pain Scale Pain Intensity 8 - Physical Exam General Appearance: no apparent distress, alert Eye Exam: PERRL/EOMI, eyes nml inspection Ears, Nose, Throat Exam: normal ENT inspection Neck Exam: normal inspection, full range of motion Respiratory Exam: normal breath sounds, lungs clear, airway intact, No respiratory distress Cardiovascular Exam: regular rate/rhythm, normal heart sounds, normal peripheral pulses Gastrointestinal/Abdomen Exam: soft, normal bowel sounds, other (Reducible right inguinal hernia), No tenderness, No mass Back Exam: normal inspection, normal range of motion, No CVA tenderness, No vertebral tenderness Extremity Exam: normal inspection, normal range of motion, pelvis stable Neurologic Exam: alert, oriented x 3, cooperative, normal mood/affect, nml cerebellar function, nml station & gait, sensation nml, No motor deficits Skin Exam: normal color, warm, dry, No rash Lymphatic Exam: No adenopathy SpO2 Interpretation: normal SpO2: 97 O2 Delivery: Room Air - Course Nursing assessment & vital signs reviewed: Yes - CT Exams Abdomen/Pelvis CT Interpretation: Tele-radiologist Report (Beam artifact from right hip prosthesis, hiatal hernia with partial intrathoracic stomach, diverticulosis, bi lateral renal micro calculi. New marked right renal atrophy presumed chronic hydronephrosis and hydroureter up to 1.8 cm. The more artifact limits evaluation of the distal right ureter) Ordered Tests: Active Orders 24 hr Category Date Time Status ABDOMEN AND PELVIS W/0 CONTRAS [CT] Stat Exams 04/12/23 23:21 Taken CULTURE,URINE Stat Lab 04/12/23 23:38 Received UA W/RFX UR CULTURE Stat Lab 04/12/23 23:38 Completed Medication Summary Discontinued Medications Generic Name Dose Route Start Last Admin Trade Name Freq PRN Reason Stop Dose Admin Hydrocodone Bitart/Acetaminophen 1 tablet 04/13/23 00:46 04/13/23 00:49 Hydrocodone/Acetamin 10-325 Mg Tablet PO 04/13/23 00:47 Not Given ONCE STA Hydrocodone Bitart/Acetaminophen 1 tab 04/13/23 00:48 04/13/23 00:49 Hydrocodone/Apap 5/325 1 Tab Tablet PO 04/13/23 00:49 1 tab STAT ONE Administration Hydrocodone Bitart/Acetaminophen Confirm 04/13/23 00:47 Hydrocodone/Apap 5/325 1 Tab Tablet Administered 04/13/23 00:48 Dose 1 tab .ROUTE .STK-MED ONE Nitrofurantoin Macrocrystals 100 mg 04/13/23 00:40 04/13/23 00:47 Nitrofurantoin Macro 100 Mg Capsule PO 04/13/23 00:41 100 mg STAT ONE Administration Nitrofurantoin Macrocrystals Confirm 04/13/23 00:46 Nitrofurantoin Macro 100 Mg Capsule Administered 04/13/23 00:47 Dose 100 mg .ROUTE .STK-MED ONE Lab/Rad Data: Laboratory Results 04/12/23 Range/Units 23:38 Urine Color Yellow (Yellow) Urine Appearance Turbid A (Clear) Urine pH 7.5 (4.6-8.0) Ur Specific [place] 1.020 (1.005-1.030) Urine Protein Trace A (Negative) Urine Glucose (UA) Negative (Negative) mg/dL Urine Ketones Negative (Negative) Urine Blood Negative (Negative) Urine Nitrite Negative (Negative) Urine Bilirubin Negative (Negative) Urine Urobilinogen 0.2 (0.2) mg/dL Ur Leukocyte Esterase Small A (Negative) U Hyaline Cast (Auto) NONE SEEN (0-2) /LPF Urine Microscopic RBC 0-2 (0-5) /HPF Urine Microscopic WBC 6-10 A (0-5) /HPF Ur Epithelial Cells None Seen (None Seen) /HPF Urine Bacteria None Seen (None Seen) /HPF Urine Culture Reflexed YES (NO) - Progress Progress: improved Progress Note: Patient is a 78-year-old female presents to our ED for evaluation of right groin pain. CT scan abdomen pelvis essentially nonremarkable for acute findings. However on physical exam there is a reducible right groin hernia. It is not visible on the CAT scan at rest. Patient also has a urinary tract infection observed on UA today. Patient received an oral dose of Macrobid. A prescription for the same was forwarded to patient's pharmacy. Patient received a [place] pill for pain. Patient will follow-up with Dr. Suazo her surgeon for reevaluation of the reducible hernia. Patient states he is ready for discharge. She voices no other complaints or concerns at this time. Portions of this note were created with voice recognition technology. There may be grammatical, spelling, punctuation or sound alike errors Complexity the problem addressed is moderate acute complicated Complex of data reviewed and analyzed is moderate. Test ordered test reviewed. Results analyzed in clinic correlated with history and physical examination. Risk of complication and a risk morbidity/mortality of patient management is moderate. A prescription for Macrobid was forwarded to patient's pharmacy. Vital stable. Time spent to discharge patient is approximately 15 minutes. Plan of care established via shared decision making. No social determinants of health present impede follow-up. Portions of this note were created with voice recognition technology. There may be grammatical, spelling, punctuation or sound alike errors 04/13/23 01:18 Counseled pt/family regarding: diagnosis - Departure Departure Disposition: Home Clinical Impression: Right groin pain, Hiatal hernia, Diverticulosis, Nephrolithiasis, Hydronephrosis, right, Hydroureter, right, Urinary tract infection, Reducible right inguinal hernia Condition: Stable Critical Care Time: No Referrals: DANI SONI [employer]ACHINE OPERATOR [Primary Care Provider] - Follow up/PCP as directed Additional Instructions: Discharge/Care Plan GEMA OSEI was seen on 04/13/23 in the Emergency Room. The patient was counseled regarding Diagnosis,Lab results, Imaging studies, need for follow up and when to return to the Emergency Room. Prescriptions given: Discharge Note I have spoken with the patient and/or caregivers. I have explained the patient's condition, diagnosis and treatment plan based on the information available to me at this time. I have answered the patient's and/or caregiver's questions and addressed any concerns. The patient and/or caregivers have as good understanding of the patient's diagnosis, condition and treatment plan as can be expected at this point. The vital signs have been stable. The patient's condition is stable and appropriate for discharge from the emergency department. The patient will pursue further outpatient evaluation with the primary care physician or other designated or consulting physician as outlined in the discharge instructions. The patient and/or caregivers are agreeable to this plan of care and follow-up instructions have been explained in detail. The patient and/or caregivers have received these instruction. The patient/and or caregivers are aware that any significant change in condition or worsening of symptoms should prompt an immediate return to this or the closest emergency department or call 911. Prescriptions: Nitrofurantoin Macro 100 mg [Macrobid 100MG Capsule] 100 mg PO BID 7 Days #14 cap
[2023-04-12 23:28] VITALS: TEMP 98.4
[2023-04-13 00:33] LABS: Appearance Turbid (Clear); Bacteria None Seen /HPF (None Seen); Bilirubin Negative (Negative); Blood Negative (Negative); Epithelial Cells None Seen /HPF (None Seen); Glucose, Urine Negative (Negative); Hyaline Casts NONE SEEN /LPF (0-2); Ketones Negative (Negative); Leukocyte Esterase Small (Negative); Nitrite Negative (Negative); Ph 7.5 (4.6-8.0); Protein,Urine Dip Trace (Negative); RBC 0-2 /HPF (0-5); Urobilinogen 0.2 mg/dL (0.2)
[2023-04-13 00:35] LABS: ADD URINE CULTURE? YES (NO)
[2023-04-13] MEDS ORDERED: Macrobid 100MG Capsule PO ONE (00:40)
[2023-04-13] MEDS ORDERED: Macrobid 100MG Capsule ONE (00:46)
[2023-04-13] MEDS ORDERED: HYDROCODONE-ACETAMIN 10-325 MG PO STA (00:46)
[2023-04-13] MEDS ORDERED: NORCO 5/325 MG ONE (00:47)
[2023-04-13] MEDS ORDERED: NORCO 5/325 MG PO ONE (00:48)
[2023-04-13 01:14] VITALS: BP 136/118; PULSE 87; RESP 20
[2023-04-13 01:16] VITALS: O2SAT 97
--- NOTE | 2023-04-13 08:49 | XRAY ---
Indication: Chronic right groin/hip pain for years. Multiple contiguous axial images obtained through the abdomen and pelvis without contrast. Comparison: December 02, 2018 Lung bases demonstrate stable right middle and right lower lobe noncalcified micronodules favored to be benign given stability over the years. No infiltrate or effusion. Heart not enlarged with minimally increasing small pericardial effusion/thickening. Again moderate sized hiatal hernia with partial intrathoracic stomach. Pelvis again limited due to beam artifact from right hip bipolar prosthesis. Noncontrasted stomach and bowel loops nonobstructed again with scattered sigmoid diverticulosis. Appendix not visualized. Interval hysterectomy. A few new tiny gallstones/gravel. No free fluid/air. Again a few bilateral renal micro-calculi. Right kidney is now atrophic with again mild hydronephrosis. Right ureter is distended throughout up to 1.8 cm. Beam artifact from right hip prosthesis limits evaluation the distal right ureter. Remaining liver, gallbladder, pancreas, spleen, adrenal glands, and bladder are unremarkable for noncontrast exam. Again moderate scattered aortoiliac calcifications without AAA. Osseous structures intact again with osteopenia and mild/moderate degenerative changes throughout the visualized spine. Progressive worsening moderate left hip degenerative arthropathy. Impression: 1. Again beam artifact from right hip prosthesis. 2. Again bilateral renal micro-calculi. New atrophic right kidney presumably from chronic hydronephrosis and hydroureter. 3. New tiny gallstones/gravel. Sonogram may yield further information if clinically warranted. 4. Pericardial effusion/thickening better evaluated with echocardiogram. 5. Chronic findings including benign right lung micronodules, hiatal hernia with partial intrathoracic stomach, colonic diverticulosis, arteriosclerotic disease, and chronic bony findings.
== END 2023-04-13 01:15 | disposition home or self-care (01) ==
LOC: ED 23:06
DX: K40.90 Unilateral inguinal hernia, without obstruction or gangrene, not specified as recurrent (principal); N39.0 Urinary tract infection, site not specified; N13.4 Hydroureter; N13.2 Hydronephrosis with renal and ureteral calculous obstruction; K57.90 Diverticulosis of intestine, part unspecified, without perforation or abscess without bleeding; K44.9 Diaphragmatic hernia without obstruction or gangrene; R10.2 Pelvic and perineal pain; E78.5 Hyperlipidemia, unspecified; I10 Essential (primary) hypertension; Z79.899 Other long term (current) drug therapy
CPT/HCPCS: 74176; 81001; 87086; 99283; A9270-GY

== ENCOUNTER 2023-07-14 07:51 | Day surgery (SDC) | payer MEDICARE ==
--- NOTE | 2023-07-07 14:26 | HP ---
DATE OF SURGERY: 07/14/2023 HISTORY OF PRESENT ILLNESS: The patient is here for a follow up on inguinal ventral hernia repair. She is doing well. It seems like she is incidentally having some constipation and it has been around five to ten years since her last colonoscopy. She has also noted history of diverticulosis. She would like to proceed with colonoscopic examination. PAST MEDICAL HISTORY: Hypertension. Gastroesophageal reflux disease. Thyroid. Renal insufficiency. PAST SURGICAL HISTORY: Total hysterectomy. Tubal ligation. Foot surgery. Hip repair. Hernia repair. ALLERGIES: STATINS. MEDICATIONS: Tamsulosin, zinc, vitamin C, Diovan, carvedilol, aspirin, Myrbetriq, amlodipine, omeprazole, Tricor, valsartan, Levoxyl, Macrobid. FAMILY HISTORY: Heart disease. SOCIAL HISTORY: Former smoker. No alcohol. REVIEW OF SYSTEMS: CONSTITUTIONAL: Denies fever or chills. CHEST: Denies shortness of breath. CVS: Denies chest pain. ABDOMEN: Denies abdominal pain. PHYSICAL EXAMINATION: GENERAL: No acute distress. CHEST: Nonlabored. No shortness of breath. CVS: Regular rate and rhythm. ABDOMEN: Soft. IMPRESSION: Constipation, history of diverticulosis. PLAN: Colonoscopy with Dr. Tacos Suazo. As dictated by Mone Rg NP.
[2023-07-14] MEDS ORDERED: Lactated Ringers 1,000 ML IV ONE (07:58)
[2023-07-14] MEDS ORDERED: Lactated Ringers 1,000 ML IV SCH (08:00)
[2023-07-14 08:21] VITALS: RESP 16
[2023-07-14] MEDS ORDERED: DIPRIVAN 200 MG/20 ML IV ONE (10:15)
[2023-07-14] MEDS ORDERED: Amidate 20 MG/10 ML IV ONE (10:17)
[2023-07-14] MEDS ORDERED: Xylocaine-Mpf 2% 5 Ml Vial ONE (10:17)
[2023-07-14 10:55] VITALS: TEMP 97.4
[2023-07-14 10:58] VITALS: BP 130/70; PULSE 63; O2SAT 96
--- NOTE | 2023-07-14 11:02 | OP ---
SURGERY DATE/TIME: 07/14/2023 1022 PREOPERATIVE DIAGNOSIS: Abdominal pain, history of polyps. POSTOPERATIVE DIAGNOSES: 1) One polyp 1 cm at hepatic flexure. 2) Severe sigmoid diverticulosis. PROCEDURE: Colonoscopy complete to cecum with hot polypectomy x1. SURGEON: Tacos Suazo M.D. ANESTHESIA: MAC. COMPLICATIONS: None. CONDITION: Stable. INDICATION: The patient has some intermittent abdominal pain. She does have a history of diverticulosis. She does have a history of polyps. She has not had a recent examination. DESCRIPTION OF PROCEDURE: She is taken to endoscopy suite. Left lateral decubitus position. Anal digital examination satisfactory. Scope introduced. The scope advanced. It was quite tortuous. With care and patience was able to go through the sigmoid. It was then better. Lots of lubricant was used to keep this going through the sigmoid readily. Scope was advanced over the cecum. Base of the cecum, ileocecal valve, appendiceal orifice was normal. Ascending normal. Hepatic flexure a 1 cm polyp taken with hot biopsy forceps to extinction. Transverse, splenic, descending, sigmoid severe diverticulosis. Rectum, anus satisfactory. Prep score was excellent. Anticipated follow up five years. Findings discussed with the in the waiting room. The patient can call for polyp report in two weeks.
== END 2023-07-14 11:08 | disposition home or self-care (01) ==
LOC: SDC 07:51
PROVIDERS: ATTEND Surgery
DX: Z09 Encounter for follow-up examination after completed treatment for conditions other than malignant neoplasm (principal); Z86.010 Personal history of colon polyps; R10.84 Generalized abdominal pain; K63.5 Polyp of colon; K57.30 Diverticulosis of large intestine without perforation or abscess without bleeding
CPT/HCPCS: 99100; J2704